=== PATIENT | female | born 1975 | race Caucasian/White ===

== ENCOUNTER 2019-08-10 11:01 | Emergency (ER) | payer OTHER ==
[~2019-08-10] VITALS: Ht 167.6 cm; Wt 56.0 kg
[~2019-08-10 11:01] MED LIST: HYDR-3652 PO; VENL150C
--- NOTE | 2019-08-10 12:17 | NUR ---
TO ROOM AT THIS TIME.
--- NOTE | 2019-08-10 12:39 | NUR ---
PT HAD RIGHT OVARY AND RIGHT AND LEFT FALLOPIAN TUBES REMOVED YESTERDAY 08/09. CAME TO ED TODAY COMPLAING ON SEVER SHARP PAIN. STATES THE PAIN MEDS GIVEN IS NOT HELPING. PT IS ACCOMPANIED BY FATHER. WARM BLANKET PROVIDED . CALL LIGHT WIHTIN REACH
[2019-08-10] MEDS ORDERED: SODIUM CHLORIDE 0.9% 1,000 ML IV ONE (13:44)
[2019-08-10] MEDS ORDERED: ONDANSETRON 2MG/ML, 2ML ONE ×2 (13:53→14:45)
[2019-08-10] MEDS ORDERED: HYDROmorphone 1 MG/ML, 1ML INJ ONE ×2 (13:53→14:45)
[2019-08-10] MEDS ORDERED: SODIUM CHLORIDE FLUSH 10ML SYR IVF ONE (14:00)
[2019-08-10] MEDS ORDERED: ONDANSETRON 2MG/ML, 2ML IVPush ONE (14:00)
[2019-08-10] MEDS: HYDROmorphone 1 MG/ML, 1ML INJ IVPush PRN ×2 (14:12→14:46)
[2019-08-10 14:34] LABS: ALBUMIN 4.2 g/dL (3.4-5.0); ANION GAP 6 mmol/L (5-15); CALCIUM 9.4 mg/dL (8.5-10.1); CHLORIDE 106 mmol/L (98-107); CREATININE 0.83 mg/dL (0.55-1.02)
[2019-08-10 14:35] LABS: BASOPHILS # (AUTO) 0.05 x10^3/uL (0-0.1); BASOPHILS % (AUTO) 0 % (0-1); EOSINOPHILS # (AUTO) 0.06 x10^3/uL (0-0.4); EOSINOPHILS % (AUTO) 0 % (1-7); LYMPHOCYTES # (AUTO) 3.39 x10^3/uL (1-3.4); LYMPHOCYTES % (AUTO) 22 % (22-44); MD NO; MEAN CORPUSCULAR HEMOGLOBIN 33.7 pg (27.0-34.8); MEAN CORPUSCULAR HGB CONC 33.2 g/dL (32.4-35.8); MEAN CORPUSCULAR VOLUME 101.5 fL (80-100); MONOCYTES # (AUTO) 0.77 x10^3/uL (0.2-0.8); MONOCYTES % (AUTO) 5 % (2-9); NEUTROPHILS % (AUTO) 73 % (42-75); PLATELET COUNT 311 x10^3/uL (130-400); RED BLOOD COUNT 4.41 x10^6/uL (3.82-5.3); RED CELL DISTRIBUTION WIDTH 14.1 % (9.6-15.2)
--- NOTE | 2019-08-10 15:00 | NUR ---
PT IS RESTING IN HOSPITAL BED. PAIN MEDS GIVEN. FATHER IS BEDSIDE. WILL REASSESS PAIN LEVEL. NO OTHER REQUESTS AT THIS TIME
[2019-08-10 15:01] LABS: MICROSCOPIC NOT IND
[2019-08-10 15:10] LABS: CULTURE INDICATED? NO
[2019-08-10 15:28] VITALS: BP 120/69
== END 2019-08-10 15:47 | disposition home or self-care (01) ==
LOC: ED 15:30
DX: R10.2 Pelvic and perineal pain (principal); F17.200 Nicotine dependence, unspecified, uncomplicated; Z90.710 Acquired absence of both cervix and uterus
CPT/HCPCS: 36415; 80048; 81003; 82040; 85025; 96374; 96375; 96376; 99283; J1170; J2405; J7030

== ENCOUNTER 2019-08-22 14:39 | Emergency (ER) | payer OTHER ==
[~2019-08-22] VITALS: Ht 167.6 cm; Wt 55.3 kg
[2019-08-22 15:27] LABS: BASOPHILS % (AUTO) 1 % (0-1); EOSINOPHILS # (AUTO) 0.22 x10^3/uL (0-0.4); EOSINOPHILS % (AUTO) 3 % (1-7); LYMPHOCYTES # (AUTO) 3.37 x10^3/uL (1-3.4); LYMPHOCYTES % (AUTO) 40 % (22-44); MD NO; MEAN CORPUSCULAR HEMOGLOBIN 33.8 pg (27.0-34.8); MEAN CORPUSCULAR VOLUME 99.5 fL (80-100); MONOCYTES # (AUTO) 0.66 x10^3/uL (0.2-0.8); MONOCYTES % (AUTO) 8 % (2-9); NEUTROPHILS # (AUTO) 4.02 x10^3/uL (1.8-6.8); NEUTROPHILS % (AUTO) 48 % (42-75); PLATELET COUNT 290 x10^3/uL (130-400); RED BLOOD COUNT 4.32 x10^6/uL (3.82-5.3); RED CELL DISTRIBUTION WIDTH 14.1 % (9.6-15.2)
[2019-08-22 15:34] LABS: INTERNATIONAL NORMALIZED RATIO 0.98 (0.93-1.1); PROTHROMBIN TIME 10.3 Seconds (9.6-11.5)
[2019-08-22 15:36] LABS: ALBUMIN 3.9 g/dL (3.4-5.0); ANION GAP 6 mmol/L (5-15); CALCIUM 8.3 mg/dL (8.5-10.1); CHLORIDE 106 mmol/L (98-107); CREATININE 0.87 mg/dL (0.55-1.02)
--- NOTE | 2019-08-22 15:43 | NUR ---
PT TO RM FROM LOBBY AT THIS TIME.
--- NOTE | 2019-08-22 16:09 | NUR ---
PT STATES SHE HAD A LARGE AMOUNT OF BLEEDING OUT OF HER RECTUM THIS MORNING, SHE CALLED HER PCP AND WAS TOLD TO COME HERE. PT WITH ABD CRAMPING, DENIES N/V/D. ERMD IN TO [facility], PT MEDICATED PER [facility]
[2019-08-22] MEDS ORDERED: HYDROmorphone 1 MG/ML, 1ML INJ ONE (16:13)
[2019-08-22] MEDS ORDERED: HYDROmorphone 1 MG/ML, 1ML INJ IM ONE (16:30)
[2019-08-22 16:39] VITALS: BP 122/73
--- NOTE | 2019-08-22 16:42 | NUR ---
ASSISTED ERMD WITH BEDSIDE RECTAL EXAM
== END 2019-08-22 17:11 | disposition home or self-care (01) ==
LOC: ED 16:45
DX: K62.5 Hemorrhage of anus and rectum (principal); Z90.710 Acquired absence of both cervix and uterus
CPT/HCPCS: 36415; 80048; 82040; 85025; 85610; 86850; 86900; 96372; 99283; J1170